=== PATIENT | female | born 1970 | race Caucasian/White ===

== ENCOUNTER 2021-09-04 16:21 | Emergency (ER) | payer OTHER ==
[~2021-09-04] VITALS: Ht 162.6 cm; Wt 104.0 kg
[2021-09-04 16:23] VITALS: BP 164/80
[2021-09-04] MEDS ORDERED: VALA500T42 PO (17:12)
[2021-09-04] MEDS ORDERED: IBUP-1554 PO (17:12)
[2021-09-04] MEDS ORDERED: HYDR-4723 PO (17:12)
[2021-09-04] MEDS ORDERED: PRED-554 PO (17:17)
== END 2021-09-04 17:44 | disposition home or self-care (01) ==
LOC: EMS 16:24
DX: B02.9 Zoster without complications (principal)
CPT/HCPCS: 99283; Z7502

== ENCOUNTER 2021-10-15 10:53 | Emergency (ER) | payer OTHER ==
[~2021-10-15] VITALS: Ht 162.6 cm; Wt 86.4 kg
[~2021-10-15 10:53] MED LIST: HYDR-4723 PO; IBUP-1554 PO; PRED-554 PO; VALA500T42 PO
[2021-10-15] MEDS ORDERED: LEVO25TA9 PO (11:10)
[2021-10-15] MEDS ORDERED: htn med PO (11:10)
[2021-10-15 12:02] LABS: BASOPHILS % (AUTO) 0.8 % (0.0-2.0); EOSINOPHILS % (AUTO) 1.8 % (1.0-6.0); HEMATOCRIT 37.8 % (36-46); HEMOGLOBIN 12.7 g/dL (12.0-16.0); LYMPHOCYTES # (AUTO) 1.7 K/uL (1.0-4.8); LYMPHOCYTES % (AUTO) 28.2 % (22.0-44.0); MEAN CORPUSCULAR HEMOGLOBIN 28.5 pg (26.0-34.0); MEAN CORPUSCULAR HGB CONC 33.7 G/dL (31.0-37.0); MEAN CORPUSCULAR VOLUME 85 fL (80-100); MONOCYTES # (AUTO) 0.4 K/uL (0.1-1.0); MONOCYTES % (AUTO) 6.7 % (2.0-9.0); NEUTROPHILS # (AUTO) 3.8 K/uL (1.8-7.7); NEUTROPHILS % (AUTO) 62.5 % (40.0-70.0); PLATELET COUNT (AUTO) 146 K/uL (150-450); RED BLOOD CELL COUNT(AUTO) 4.46 MIL/uL (4.00-5.20); RED CELL DISTRIBUTION WIDTH 15.8 % (11.5-14.5)
[2021-10-15 12:13] LABS: PROTHROMBIN TIME 10.3 SEC (9.4-11.6)
[2021-10-15 12:14] LABS: ALANINE AMINOTRANSFERASE 54 U/L (12-78); ALBUMIN 3.8 g/dL (3.4-5.0); ALKALINE PHOSPHATASE 65 U/L (46-116); ANION GAP 10 mmol/L (8-16); ASPARTATE AMINOTRANSFERASE 33 U/L (15-37); BILIRUBIN,TOTAL 0.4 mg/dL (0.1-1.0); CALCIUM, TOTAL 8.8 mg/dL (8.8-10.5); CARBON DIOXIDE 26 mmol/L (22-29); CHLORIDE 103 mmol/L (98-107); CREATININE 0.61 mg/dL (0.60-1.30); GLUCOSE,RANDOM 93 mg/dL (70-110); LIPASE 120 U/L (73-393); SODIUM SERUM 139 mmol/L (136-145); TOTAL PROTEIN, SERUM 7.9 g/dL (6.4-8.2); UREA NITROGEN, BLOOD 22 mg/dL (7-18)
[2021-10-15 12:16] LABS: GLOMERULAR FILTR. RATE CALC > 60 mL/min (>60)
[2021-10-15 14:46] LABS: HEMATOCRIT 37.6 % (36-46); HEMOGLOBIN 12.5 g/dL (12.0-16.0)
[2021-10-15 14:54] VITALS: BP 156/94
[2021-10-15] MEDS ORDERED: POTASSIUM CHLORIDE 20 MEQ ER TABLET PO ONE (15:00)
== END 2021-10-15 15:36 | disposition home or self-care (01) ==
LOC: EMS 10:53
DX: K92.1 Melena (principal); K57.90 Diverticulosis of intestine, part unspecified, without perforation or abscess without bleeding; I10 Essential (primary) hypertension; E03.9 Hypothyroidism, unspecified; Z79.899 Other long term (current) drug therapy
CPT/HCPCS: 74176; 80053; 82271; 83690; 85014; 85018; 85025; 85610; 85730; 86850; 86900; 86901; 99285

== ENCOUNTER 2022-12-27 07:53 | Emergency (ER) | payer OTHER ==
[~2022-12-27] VITALS: Ht 167.6 cm; Wt 106.4 kg
[~2022-12-27 07:53] MED LIST changes: +LEVO25TA9 PO; +htn med PO
[2022-12-27 07:56] VITALS: BP 129/73; PULSE 78; RESP 18; TEMP 98.2
[2022-12-27] MEDS ORDERED: LEVO75 PO (07:56)
[2022-12-27] MEDS ORDERED: HYDR25TA PO (07:56)
[2022-12-27] MEDS ORDERED: IBUPROFEN 600 MG TABLET PO ONE (08:45)
[2022-12-27] MEDS ORDERED: IBUP-1492 PO (09:18)
== END 2022-12-27 09:52 | disposition home or self-care (01) ==
LOC: EMS 07:57
DX: S93.602A Unspecified sprain of left foot, initial encounter (principal); I10 Essential (primary) hypertension; E03.9 Hypothyroidism, unspecified; Z98.890 Other specified postprocedural states; W31.89XA Contact with other specified machinery, initial encounter; Y93.89 Activity, other specified; Y92.89 Other specified places as the place of occurrence of the external cause; Y99.8 Other external cause status
CPT/HCPCS: 99283

== ENCOUNTER 2023-10-19 17:28 | Emergency (ER) | payer OTHER ==
[~2023-10-19] VITALS: Ht 162.6 cm; Wt 95.5 kg
[~2023-10-19 17:28] MED LIST changes: -HYDR-4723 PO; +HYDR25TA PO; +IBUP-1492 PO; -IBUP-1554 PO; -LEVO25TA9 PO; +LEVO75 PO; -PRED-554 PO; -VALA500T42 PO; -htn med PO
[2023-10-19 18:03] LABS: COVID AG,FIA SOURCE NASAL SWAB
[2023-10-19] MEDS: IBUPROFEN 600 MG TABLET PO ONE (18:21)
[2023-10-19] MEDS: AMOX TR/POT CLAV 875 MG/125 MG TABLET PO ONE (18:21)
[2023-10-19 18:32] LABS: INFLUENZA TYPE A NEGATIVE FOR TYPE A (NEGATIVE); INFLUENZA TYPE B NEGATIVE FOR TYPE B (NEGATIVE)
[2023-10-19 18:48] LABS: SARS-COV2 (COVID) ANTIGEN,FIA Positive (Negative)
[2023-10-19] MEDS ORDERED: ACET-3385 PO (19:20)
[2023-10-19 20:15] VITALS: BP 129/78; PULSE 89; RESP 16; TEMP 97.3
== END 2023-10-19 20:15 | disposition home or self-care (01) ==
LOC: EMS 17:32
DX: U07.1 COVID-19 (principal); I10 Essential (primary) hypertension; E03.9 Hypothyroidism, unspecified; Z98.890 Other specified postprocedural states
CPT/HCPCS: 87804; 99283

== ENCOUNTER 2024-05-31 15:20 | Emergency (ER) | payer OTHER ==
[~2024-05-31] VITALS: Ht 162.6 cm; Wt 103.0 kg
[~2024-05-31 15:20] MED LIST changes: +ACET-3385 PO
[2024-05-31 15:34] VITALS: BP 129/75; PULSE 78; RESP 18; TEMP 97.8; O2SAT 98
[2024-05-31 15:43] LABS: COVID AG,FIA SOURCE NASAL SWAB
[2024-05-31 16:05] LABS: INFLUENZA TYPE A NEGATIVE FOR TYPE A (NEGATIVE); INFLUENZA TYPE B NEGATIVE FOR TYPE B (NEGATIVE); SARS-COV2 (COVID) ANTIGEN,FIA Negative (Negative)
[2024-05-31] MEDS ORDERED: LOPE1TAB PO (17:50)
[2024-05-31] MEDS ORDERED: ONDA-104 PO (17:50)
== END 2024-05-31 18:03 | disposition home or self-care (01) ==
LOC: EMS 15:23
DX: K52.9 Noninfective gastroenteritis and colitis, unspecified (principal); I10 Essential (primary) hypertension; E03.9 Hypothyroidism, unspecified; Z98.890 Other specified postprocedural states; Z79.899 Other long term (current) drug therapy; Z79.890 Hormone replacement therapy; Z20.822 Contact with and (suspected) exposure to COVID-19
CPT/HCPCS: 87804; 99283